=== PATIENT | female | born 1960 | race Caucasian/White ===

== ENCOUNTER → 2016-03-04 | Outpatient (CLI) | payer BC ==
--- NOTE | 2016-03-04 15:32 | MA ---
Screening Digital Mammogram With iCAD Analysis Clinical Indications: Routine screening. Technique: Standard cephalocaudal and mediolateral oblique projections were obtained. This examinatio n was processed by the iCAD computer aided detection system. Comparison: February 2015, February 2014, January 2014, January 2013, January 2012, December 2010. Breast density: Type C; Heterogeneously dense. Findings: CAD was reviewed. There is possible developing nodular asymmetry in the central posterior r ight breast noted on the oblique view. No suspicious microcalcifications are seen. Heterogeneous glan dular pattern of the left breast is stable. Impression: Possible developing right breast nodular asymmetry requires further evaluation, BI-RADS 0 . Recommendation: Spot compression assessment of the right breast with ultrasound suggested if the abno rmality persists on diagnostic evaluation. [facility] will send a result letter to the patient. Dense breast parenchyma diminishes mammographic sensitivity. Negative mammography should not preclude additional workup of a clinically suspicious finding. The patient's information is entered into a reminder system with a target due date for her next mammo gram.
== END ==
LOC: BRMIMAGING 13:00
DX: Z12.31 Encounter for screening mammogram for malignant neoplasm of breast (principal)
CPT/HCPCS: G0202

== ENCOUNTER → 2016-03-14 | Outpatient (CLI) | payer BC ==
--- NOTE | 2016-03-14 10:50 | US ---
Right Breast Sonography Clinical History: 55-year-old female noted to have some nodular asymmetry developing in the posterior right breast on recent screening mammography. There is no family history of breast cancer. Diagnosti c supplementary views revealed a questionable persistent nodular asymmetry, and ultrasound is request ed to determine if this is cystic or solid. Technique: A linear 12 MHz transducer was used to sonographically evaluate the 10 to 2 o'clock positi ons of the right breast. Color Doppler and harmonics were utilized, and a cine clip was also acquired . Comparison Study: Diagnostic mammography from earlier this morning. Findings: In the 10 o'clock position, 6 cm from the nipple, there is a 5 x 5 x 6 mm cystic structure which appears more anechoic with harmonics, and demonstrates some through-transmission. Adjacent to t his is a 3 x 3 x 4 mm hypoechoic likely-benign cystic structure. There is no intrinsic vascularity. I n the 10 o'clock position, 3 cm from the nipple, there is a 5 x 5 x 5 mm well-circumscribed structure which appears more anechoic on imaging with harmonics. There is some variable through-transmission. Given the depth of this and its small size, this likely represents a small cyst; however, unilateral right mammography in 6 months with follow-up sonography is recommended to assure stability. I discussed these findings with the patient and her at the time of exam performance. Impression: The posterior mammographic nodularity appears to correspond to some small cysts in the 10 o'clock position of the right breast. Recommendation: Unilateral right mammography and repeat sonography in six months to assure stability.
--- NOTE | 2016-03-14 11:07 | MA ---
Diagnostic Digital Right Mammography Clinical History: 55-year-old female noted to have a questionable nodular asymmetry on recent screeni ng mammography in the posterior portion of the right breast. There is no family history of breast can cer. Technique: Spot compression MLO and craniocaudal views as well as true mediolateral, MLO, and exagger ated craniocaudal views of the right breast are compared with previous studies dated March 04, 2016 , February 21, 2015, January 30, 2014, January 14, 2013, and January 14, 2012. Additionally, exam is CAD checked. Breast Density: Type C (heterogeneously dense). CAD Evaluation: Negative. Findings: The area of parenchymal asymmetry appears much less conspicuous with spot compression, silveira cass there does appear to be a small persistent nodular opacity seen posteriorly in the right breast, above the nipple line, approximately 6 cm from the nipple. This is more challenging to appreciate in the orthogonal view, although would be expected to be just lateral of midline. Targeted sonography wi ll be performed to determine if there is a cystic or solid mass in this location. Impression: Needs additional imaging evaluation. BI-RADS Category 0, incomplete. Recommendation: Targeted sonography of the posterior right breast, above the nipple line.
== END ==
LOC: BRMIMAGING 09:36
DX: R92.8 Other abnormal and inconclusive findings on diagnostic imaging of breast (principal)
CPT/HCPCS: 76641-PO; G0206

== ENCOUNTER → 2016-09-18 | Outpatient (CLI) | payer BC | LOC: BRMIMAGING 09:09 | PROVIDERS: ATTEND Family Medicine | DX: Z12.39 Encounter for other screening for malignant neoplasm of breast (principal); R92.8 Other abnormal and inconclusive findings on diagnostic imaging of breast | CPT/HCPCS: 76641-PO; G0206 ==